=== PATIENT | male | born 1945 | race Caucasian/White ===

== ENCOUNTER → 2016-04-05 | Outpatient (CLI) | payer MEDICARE, OTHER ==
[~2016-04-05] MED LIST: ASP325T; CARV12.52; CEPH500T PO; CLOP75TA; CYAN1TAB16; FOSI40TA; FRSM20T; GBPN600T PO; GLMP2T PO; GLYB5TAB3; HCT25T; INSASP10V; INSU100V6; LSRT50T PO; LTN005OP2; METF-380; NIA500ERT; OMG1KC; POTA10CA43 PO; ROSU10TA12; [UNRECOGNIZED DRUG - OTHER]
--- OUTSIDE RECORDS SUMMARY | 2016-04-05 14:42 | XMS REPORT | Continuity of Care Document ---
Author Author [facility] Organization [facility] Address Unknown Phone Unavailable Care Team Providers [facility] Administrator Name Role Phone NADIA ACEVEDO DO PCP Insurance Providers Payer Name Policy Number Subscriber Name Relationship [employer] [id number] Shashank Arredondo Self / Same As Patient [employer] [id number] Shashank Arredondo Self / Same As Patient Advance Directives Directive Response Recorded Date/Time Advance Directives Yes 08/16/15 1:47pm Health Care Power of Assembler No 08/16/15 1:47pm Organ Donor No 08/16/15 1:47pm Resuscitation Status Full Code 08/16/15 1:47pm Chief Complaint and Reason for Visit Chief Complaint Laceration Reason for Visit Laceration of left thumb Problems Active Problems Medical Problem Onset Date Status Laceration of left thumb Unknown Acute Medications Current Home Medications Medication Dose Units Route Directions Days/Qty Instructions Start Date Fish Oil 1,000 Mg 02/27/09 Niacin 500 Mg 02/27/09 Aspirin 325 Mg 02/27/09 Carvedilol 12.5 Mg 02/27/09 Fosinopril Sodium (Monopril) 40 Mg 02/27/09 Rosuvastatin Calcium 10 Mg 02/27/09 Hydrochlorothiazide 25 Mg 02/27/09 Cyanocobalamin/Fa/Pyridoxine 1 Tab 02/27/09 Metformin Hcl (Glucophage) 1,000 Mg 02/27/09 Clopidogrel Bisulfate 75 Mg 01/15/10 Furosemide 20 Mg 02/27/09 Latanoprost 2.5 Ml 02/27/09 Insulin Glargine,Hum.rec.anlog 100 Unit/1 Ml 02/27/09 Insulin Aspart 10 Unit/0.1 Ml 02/27/09 Glimepiride 2 Mg 2 Mg Oral Daily@0630 12/20/11 Gabapentin 600 Mg 600 Mg Oral Three Times A Day 12/20/11 Potassium Chloride (Micro K) 10 Meq 1 Each Oral Daily With Food 07/25 Losartan Potassium 50 Mg 50 Mg Oral Daily 12/20/11 Cephalexin 500 Mg 500 Mg Oral Three Times A Day 21 08/16/15 Past Home Medications Medication Directions Ordered Status Glyburide 5 Mg Tablet, 02/27/09 Discontinued [Trusoft] , 02/27/09 Discontinued Social History Social History Problem Response Recorded Date/Time Alcohol Use Denies Use 08/16/2015 1:47pm Recreational Drug Use No 08/16/2015 1:47pm Recent Foreign Travel No 08/16/2015 1:47pm Recent Infectious Disease Exposure No 08/16/2015 1:47pm Hospitalization with Isolation Denies 08/16/2015 1:47pm Sexually Transmitted Disease No 08/16/2015 1:47pm Smoking Status Never a Smoker 08/16/2015 1:47pm Query Response Start Date Stop Date Smoking Status Never a Smoker Hospital Discharge Instructions No hospital discharge instructions. Plan of Care Discharge Date 08/16/15 3:51pm Disposition 01 HOME, SELF-CARE Condition at Discharge Improved Instructions/Education Provided Finger Laceration (ED) Prescriptions See Medication Section Referrals NADIA ACEVEDO DO - Primary Care Physician Additional Instructions/Education All discharge instructions reviewed with patient and/or family. Voiced understanding. Take medications as directed. Follow-up with your DrKirit in a few days for recheck and further evaluation. Return for worse pain, fever, swelling, red streaks up the hand or arm or other concerns as needed. Keep dressing in place for 2 days and then change on Monday. At that time, apply antibiotic ointment and Band-Aid or dressing as needed. Overall keep wound clean and dry. Functional Status No functional status results. Allergies, Adverse Reactions, Alerts Allergen Type Severity Reaction Status Last Updated No Known Allergies Allergy Unknown Active 09/09/05 Immunizations Name Given Type Date of Pneumonia Vaccine 11/21/09 Historical Date of Influenza Vaccine 10/22/10 Historical Tetanus Booster (TDap) Unknown Historical Tdap 08/16/15 Administered Vital Signs Acute Vital Signs Vital Response Date/Time Temperature (Fahrenheit) 97.8 degrees F (97.6 - 99.5) 08/16/2015 1:47pm Temperature (Calculated Celsius) 36.85687 degrees C (36.4 - 37.5) 08/16/2015 1:47pm Temperature Source Temporal 08/16/2015 1:47pm Pulse Rate (adult) 76 bpm (60 - 90) 08/16/2015 1:47pm Respiratory Rate 18 bpm (12 - 24) 08/16/2015 1:47pm O2 Sat by Pulse Oximetry 91 % (88 - 100) 08/16/2015 1:47pm Blood Pressure 198/101 mm Hg 08/16/2015 1:47pm Blood Pressure Mean 133 mm Hg 08/16/2015 1:47pm Pain Numeric Pain Scale 8 08/16/2015 1:47pm Height (Feet) 5 feet 08/16/2015 1:47pm Height (Inches) 9 inches 08/16/2015 1:47pm Height (Calculated Centimeters) 175.102901 cm 08/16/2015 1:47pm Weight (Pounds) 232 pounds 08/16/2015 1:47pm Weight (Calculated Kilograms) 105.842634 kilograms 08/16/2015 1:47pm Height 5 ft 9 in Weight 232 lb Body Mass Index 34.3 kg/m^2 Results No known relevant diagnostic tests, laboratory data and/or discharge summary. Procedures No known history of procedures. Encounters Encounter Location Arrival/Admit Date Discharge/Depart Date Attending Provider Departed Emergency Room [facility] 08/16/15 12:31pm 04/28 3:51pm LISSA BRITT MD Recent Diagnosis
--- NOTE | 2016-04-05 14:50 | Diagnostic Imaging Report ---
INDICATION: Bronchitis and fatigue with dyspnea. PA and lateral views of the chest are obtained with comparison made to study of 10/29/2014. FINDINGS: Overall heart size and pulmonary vascularity remain within normal limits. There has been slight increase in left basilar atelectasis or scarring. No pneumothorax or consolidation is identified. No pleural fluid is appreciated. IMPRESSION: Slight interval increase in left basilar atelectasis or scarring. Dictated by: Dictated on workstation # [id number]
== END ==
LOC: RAD 14:38
PROVIDERS: ATTEND Nurse Practitioner Family
DX: J44.9 Chronic obstructive pulmonary disease, unspecified (principal); R53.83 Other fatigue; R06.00 Dyspnea, unspecified
CPT/HCPCS: 71020

== ENCOUNTER → 2016-08-12 | Outpatient (CLI) | payer MEDICARE, OTHER ==
--- NOTE | 2016-08-12 14:17 | Diagnostic Imaging Report ---
PROCEDURE: US Carotid Duplex Bilateral. TECHNIQUE: Multiple real-time grayscale images were obtained over the carotid arteries in various projections bilaterally. Additional duplex Doppler and color Doppler images were also obtained. INDICATION: CVA. FINDINGS: Grayscale images demonstrate mild plaque at the carotid bifurcation bilaterally. The color Doppler demonstrates patency of the internal, external and common carotid arteries on both sides. There is antegrade flow seen in the vertebral arteries bilaterally. Peak systolic velocities in the right ICA are 98, 86 and 97 cm/s from proximal to distal and on the left 69, 64 and 62 cm/s. ICA over CCA ratios are up to 1.4 on the right and 0.7 on the left. IMPRESSION: Mild atherosclerotic plaque along the carotid bifurcation bilaterally with estimated underlying stenosis in the range of 0-40% bilaterally. Dictated by: Dictated on workstation # [id number]
== END ==
LOC: RAD 09:59
PROVIDERS: ATTEND Family Medicine
DX: I65.23 Occlusion and stenosis of bilateral carotid arteries (principal); I25.10 Atherosclerotic heart disease of native coronary artery without angina pectoris
CPT/HCPCS: 93880

== ENCOUNTER → 2017-08-11 | Outpatient (CLI) | payer MEDICARE, OTHER ==
--- NOTE | 2017-08-11 07:45 | Diagnostic Imaging Report ---
INDICATION: Dyspnea and COPD with allergic rhinitis. PA and lateral views of the chest were obtained with comparison made to study of 04/05/2016. Heart size and pulmonary vascularity are within normal limits. There is linear atelectasis and/or scarring in left base. No consolidation, pneumothorax or significant pleural fluid is identified. IMPRESSION: No significant change is seen in the appearance of left basilar atelectasis and/or scarring. Dictated by: Dictated on workstation # [id number]
== END ==
LOC: RAD 07:14
PROVIDERS: ATTEND Nurse Practitioner Family
DX: J44.9 Chronic obstructive pulmonary disease, unspecified (principal); J30.9 Allergic rhinitis, unspecified
CPT/HCPCS: 71046

== ENCOUNTER → 2019-03-26 | Outpatient (CLI) | payer MEDICARE, OTHER ==
--- NOTE | 2019-03-27 11:33 | Diagnostic Imaging Report ---
PROCEDURE: MRI right joint upper extremity without contrast. TECHNIQUE: Multiplanar, multisequence non contrast-enhanced MRI of the right upper extremity was accomplished. INDICATION: Injury to the right shoulder from a fall. EXAMINATION: Right shoulder MRI without contrast 03/26/2019. FINDINGS: Postoperative changes are noted. There is susceptibility artifact along the lateral aspect of the humeral head. This is likely due to previous rotator cuff repair, correlate with prior surgical history. The supraspinatus tendon appears markedly thinned. Given the artifact from the postsurgical changes, it is difficult to ascertain if there is a small focal full-thickness tear or if there is a partial thickness tear with a few residual fibers attaching to the greater tuberosity. Nonetheless, the remaining supraspinatus tendon is markedly thinned anteriorly. More posteriorly, the bursal sided fibers of the infraspinatus tendon are for the most part intact with marked articular thinning. In the far posterior infraspinatus tendon, there is a focal defect on coronal images 8 of 21 which appears to represent a serpiginous full-thickness tear. No retraction. The subscapularis tendon contains abnormal signal intensity within its intrasubstance which could represent a small partially tear. No full-thickness tear or retraction. The long head of the biceps tendon lies within the bicipital groove and appears to be intact. Intracapsular aspect of the long head of biceps tendon is not well seen and could be positional in nature. A proximal tear or even history of prior tenodesis could cause a similar appearance, correlate clinically. The labrum demonstrates some heterogeneous high signal superiorly and anteriorly. This appears to represent degenerative signal. The superior posterior labrum contains areas of internal heterogeneity as well. If there is concern for labral tear, post-arthrogram imaging could better characterize as clinically indicated. There is atrophy and fatty infiltration involving the supraspinatus muscle and teres minor muscle. Remaining musculature fairly well-preserved. Visualized axilla unremarkable. IMPRESSION: 1. Postoperative findings as above somewhat obscuring the far anterior supraspinatus tendon. At least a deep partial tear of the supraspinatus tendon versus marked chronic thinning with full-thickness tear difficult to completely exclude. A serpiginous far posterior full-thickness tear of the infraspinatus tendon is suspected. If clinically indicated, post-arthrogram imaging could evaluate for any extravasation of contrast through a full-thickness tear. 2. Heterogeneous signal throughout the superior labrum degenerative in nature as superimposed tear not excluded. See above discussion. 3. Long head of the biceps tendon not well seen intracapsular aspect which could be postoperative in nature or due to a proximal tear, correlate with history and symptoms. 4. Subscapularis tendon demonstrates a partial thickness intrasubstance tear. No full-thickness tear or retraction. Dictated by: Dictated on workstation # [id number]
== END ==
LOC: RAD 03-01 08:19
PROVIDERS: ATTEND Orthopaedic Surgery
DX: S46.011A Strain of muscle(s) and tendon(s) of the rotator cuff of right shoulder, initial encounter (principal); W19.XXXA Unspecified fall, initial encounter; Z98.890 Other specified postprocedural states
CPT/HCPCS: 73221

== ENCOUNTER → 2020-10-23 | Outpatient (CLI) | payer MEDICARE, OTHER ==
[~2020-10-23] MED LIST changes: +RT-ALBUTEROL SULF 2.5 MG/3 ML PRE-MIX VIAL INH ONE
== END ==
LOC: RT 07:42
PROVIDERS: ATTEND Nurse Practitioner Family
DX: J42 Unspecified chronic bronchitis (principal)
CPT/HCPCS: 94060; 94726; 94729

== ENCOUNTER → 2020-12-22 | Outpatient (CLI) | payer OTHER ==
[~2020-12-22] MED LIST changes: -RT-ALBUTEROL SULF 2.5 MG/3 ML PRE-MIX VIAL INH ONE
--- NOTE | 2020-12-22 19:09 | Diagnostic Imaging Report ---
PROCEDURE: US Renal Bilateral. TECHNIQUE: Multiple real-time grayscale images were obtained over the kidneys in various projections bilaterally. INDICATION: Renal insufficiency. FINDINGS: Right kidney measures 14.3 x 4.4 x 6.9 cm and left kidney measures 11.5 x 4.9 x 6.2 cm. The right kidney does contain a hypoechoic lesion measuring 3.0 x 2.1 x 2.8 cm. This may represent a cyst. Left kidney contains a 0.8 x 1.0 x 0.7 cm cyst. There are no calculi or hydronephrosis. Cortical thickness and echogenicity appears normal. Bladder has a large capacity of approximately 1100 mL. Patient was unable to void. IMPRESSION: 1. Bilateral hypoechoic renal lesions, perhaps cysts. Follow-up to confirm stability would be recommended. 2. Large bladder capacity. Patient was unable to void. Dictated by: Dictated on workstation # [id number]
== END ==
LOC: RAD 13:01
PROVIDERS: ATTEND Urology
DX: N40.0 Benign prostatic hyperplasia without lower urinary tract symptoms (principal); N28.89 Other specified disorders of kidney and ureter
CPT/HCPCS: 76770

== ENCOUNTER → 2021-03-15 | Outpatient (RCR) | payer OTHER | END | disposition home or self-care (01) | LOC: CR 03-10 07:56 | PROVIDERS: ATTEND Internal Medicine Cardiovascular Disease | DX: Z95.1 Presence of aortocoronary bypass graft (principal) | CPT/HCPCS: 93798 ==

== ENCOUNTER → 2021-04-12 | Outpatient (RCR) | payer OTHER | END | disposition home or self-care (01) | LOC: CR 03-22 08:34 | PROVIDERS: ATTEND Internal Medicine Cardiovascular Disease | DX: Z29.8 Encounter for other specified prophylactic measures (principal); Z95.1 Presence of aortocoronary bypass graft | CPT/HCPCS: 93798 ==

== ENCOUNTER 2021-05-10 08:28 | Outpatient (RCR) | payer OTHER | END 2021-05-13 | disposition home or self-care (01) | LOC: CR 08:28 | PROVIDERS: ATTEND Internal Medicine Cardiovascular Disease | DX: Z29.8 Encounter for other specified prophylactic measures (principal); Z95.1 Presence of aortocoronary bypass graft | CPT/HCPCS: 93798 ==

== ENCOUNTER 2021-06-11 08:13 | Outpatient (RCR) | payer OTHER | END 2021-06-12 | disposition home or self-care (01) | LOC: CR 08:13 | PROVIDERS: ATTEND Internal Medicine Cardiovascular Disease | DX: Z29.8 Encounter for other specified prophylactic measures (principal); Z95.1 Presence of aortocoronary bypass graft | CPT/HCPCS: 93798 ==

== ENCOUNTER 2021-06-16 13:22 | Outpatient (RCR) | payer OTHER | END 2021-07-13 | disposition home or self-care (01) | LOC: CR 13:22 | PROVIDERS: ATTEND Internal Medicine Cardiovascular Disease | DX: Z29.8 Encounter for other specified prophylactic measures (principal); Z95.1 Presence of aortocoronary bypass graft | CPT/HCPCS: 93798 ==

== ENCOUNTER 2021-08-11 06:31 | Outpatient (RCR) | payer OTHER | END 2021-08-12 | disposition home or self-care (01) | LOC: CR3 06:31 | PROVIDERS: ATTEND Internal Medicine Cardiovascular Disease | DX: Z29.8 Encounter for other specified prophylactic measures (principal) ==

== ENCOUNTER 2021-10-06 06:29 | Outpatient (RCR) | payer OTHER | END 2021-10-12 | disposition home or self-care (01) | LOC: CR3 06:29 | PROVIDERS: ATTEND Internal Medicine Cardiovascular Disease | DX: Z29.8 Encounter for other specified prophylactic measures (principal) ==

== ENCOUNTER 2021-10-15 07:56 | Outpatient (RCR) | payer OTHER | END 2021-11-12 | disposition home or self-care (01) | LOC: CR 07:56 | PROVIDERS: ATTEND Internal Medicine Cardiovascular Disease | DX: Z29.8 Encounter for other specified prophylactic measures (principal); Z95.1 Presence of aortocoronary bypass graft ==

== ENCOUNTER 2021-12-10 06:30 | Outpatient (RCR) | payer OTHER | END 2021-12-12 | disposition home or self-care (01) | LOC: CR3 06:30 | PROVIDERS: ATTEND Internal Medicine Cardiovascular Disease | DX: Z29.8 Encounter for other specified prophylactic measures (principal) ==

== ENCOUNTER 2022-01-31 06:39 | Outpatient (RCR) | payer OTHER | END 2022-02-11 | disposition home or self-care (01) | LOC: CR3 06:39 | PROVIDERS: ATTEND Internal Medicine Cardiovascular Disease | DX: Z29.8 Encounter for other specified prophylactic measures (principal) ==

== ENCOUNTER 2022-04-13 06:21 | Outpatient (RCR) | payer OTHER | END 2022-04-14 | disposition home or self-care (01) | LOC: CR3 06:21 | PROVIDERS: ATTEND Internal Medicine Cardiovascular Disease | DX: Z29.8 Encounter for other specified prophylactic measures (principal) ==

== ENCOUNTER 2022-06-10 06:50 | Outpatient (RCR) | payer OTHER | END 2022-06-12 | disposition home or self-care (01) | LOC: CR3 06:50 | PROVIDERS: ATTEND Internal Medicine Cardiovascular Disease | DX: Z29.8 Encounter for other specified prophylactic measures (principal) ==

== ENCOUNTER → 2022-08-12 | Outpatient (RCR) | payer OTHER | END | disposition home or self-care (01) | LOC: CR3 06-13 06:54 | PROVIDERS: ATTEND Internal Medicine Cardiovascular Disease | DX: Z29.8 Encounter for other specified prophylactic measures (principal) ==

== ENCOUNTER → 2022-10-12 | Outpatient (RCR) | payer OTHER | END | disposition home or self-care (01) | LOC: CR3 08-15 06:11 | PROVIDERS: ATTEND Internal Medicine Cardiovascular Disease | DX: Z29.8 Encounter for other specified prophylactic measures (principal) ==

== ENCOUNTER 2022-10-24 06:07 | Outpatient (RCR) | payer OTHER | END 2022-12-12 | disposition home or self-care (01) | LOC: CR3 06:07 | PROVIDERS: ATTEND Internal Medicine Cardiovascular Disease | DX: Z01.89 Encounter for other specified special examinations (principal) ==